=== PATIENT | female | born 1975 | race Caucasian/White ===

== ENCOUNTER 2016-08-10 17:33 | Emergency (ER) | payer SELFPAY ==
[~2016-08-10] VITALS: Ht 170.2 cm; Wt 78.0 kg
[~2016-08-10 17:33] MED LIST: DICL75 PO; HYDR-3533 PO; ROBA750T3 PO
[2016-08-10 17:35] VITALS: BP 139/67; PULSE 70; RESP 24; TEMP 98.7; O2SAT 99
--- NOTE | 2016-08-10 17:51 | PD ---
HPI . left ankle pain earlier today Chief Complaint: Injury Time Seen by Provider: 17:51 Travel History International Travel<30 days: No Contact w/Intl Traveler<30days: No Traveled to known affect area: No History of Present Illness HPI 41-year-old female here with complaints of left ankle pain. Patient was walking and actually rolled her ankle around 4:30 AM this morning. She unfortunately had to go to work and finish his shift because she did not have coverage and has been standing on her foot for a very long time. She tells me that she took a Lortab from a friend at 11 AM. She is now complaining of pain on the lateral ankle. She has decreased range of motion and difficulty ambulating. She rates the pain as severe. She denies any other complaints. PFSH Past Medical History Diminished Hearing: No Menopausal: Yes : 4 Para: 3 Miscarriage: 1 Tubal Ligation: Yes Past Surgical History Hysterectomy: Yes (partial) Joint Replacement: Yes (rt knee x3) Social History Alcohol Use: No Tobacco Use: Yes (1/2 PPD) Substance Use: No Allergies-Medications (Allergen,Severity, Reaction): Coded Allergies: Codeine (Verified Allergy, Mild, 08/10/16) Reported Meds & Prescriptions Reported Meds & Active Scripts Active No Active Prescriptions or Reported Medications Review of Systems General / Constitutional: No: Fever Eyes: No: Visual changes HENT: No: Headaches Cardiovascular: No: Chest Pain or Discomfort Respiratory: No: Shortness of Breath Gastrointestinal: No: Abdominal Pain Genitourinary: No: Dysuria Musculoskeletal: Positive: Pain (left ankle pain) Skin: No Rash Neurologic: No: Weakness Psychiatric: No: Depression Endocrine: No: Polydipsia Hematologic/Lymphatic: No: Easy Bruising Physical Exam Narrative GENERAL: AAO x 3, no acute distress, Well-nourished, well-developed patient. SKIN: Warm and dry. No visible rashes or bruising. Ecchymosis and edema to the left lateral ankle. HEAD: Normocephalic and atraumatic. EYES: No scleral icterus. No injection or drainage. ENT: No nasal drainage noted. . Airway patent. NECK: Supple, trachea midline. No JVD. CARDIOVASCULAR: Regular rate and rhythm without murmurs, gallops, or rubs. RESPIRATORY: Breath sounds equal bilaterally. No accessory muscle use. No rhonchi or rales. GASTROINTESTINAL: Visual inspection normal EXTREMITIES: No cyanosis. Edema to the left lateral ankle. Significant point tenderness with light palpation to the lateral malleolus of the left ankle. Decreased range of motion secondary pain. Dorsi and plantarflexion are normal NEURO: strength in the left foot/ankle normal BACK: Nontender without obvious deformity. PSYCH: AAO x 3, normal affect. Data Data Last Documented VS Vital Signs Date Time Temp Pulse Resp B/P Pulse Ox O2 Delivery O2 Flow Rate FiO2 08/10/16 17:35 98.7 70 24 139/67 99 Room Air Orders Ankle, Complete ([id number]) (08/10/16 17:54) Ketorolac Inj (Toradol Inj) (08/10/16 18:00) Ct Ankle W/O Contrast (08/10/16 ) [facility] Medical Decision Making Medical Screen Exam Complete: Yes Emergency Medical Condition: Yes Medical Record Reviewed: Yes Differential Diagnosis Left ankle sprain, left ankle fracture, less likely Achilles tendon rupture Narrative Course This is a 41-year-old female status post twisting of her left ankle. There is some significant edema and point tenderness to the lateral malleolus of the left ankle. X-ray ordered to rule out any type of bony abnormality. Toradol provided for pain. 1834: discussed xray with patient; her pain is pretty significant with examination and this fragment on xray could represent an avulsion fracture. I have ordered a CT scan Patient's care was transitioned to the next provider coming on: Jerson Cervantes, she will determine the disposition. Additional Instructions: Please return to emergency department if your symptoms return or worsen. Follow up with your primary care provider. Take medications as prescribed. Rest the affected area as much as possible. Ice this area for 15-20 minutes at a time. You can do this every hour or as much as tolerated. Keep this area compressed (jaren bandage) as tolerated. Elevate this area. Use ibuprofen as needed for pain and inflammation. Scripts No Active Prescriptions or Reported Meds Condition: Gaby Lund August 10, 2016 17:51
[2016-08-10] MEDS ORDERED: KETOROLAC TROMETHAMINE 60 MG/2 ML (IM) VIAL IM ONE (18:00)
--- NOTE | 2016-08-10 18:30 | RADRPT ---
EXAM DATE/TIME: 08/10/2016 18:05 [facility] COMPARISON: No previous studies available for comparison. INDICATIONS : Left lateral ankle pain and swelling after rolling ankle. MEDICAL HISTORY : None. SURGICAL HISTORY : None. ENCOUNTER: Initial ACUITY: 1 day PAIN SCORE: 9/10 LOCATION: Left lateral ankle. FINDINGS: There is mild soft-tissue swelling seen laterally. The distal tibia and fibula appear intact. The a nkle is normally aligned. There is some minimal fragmentation seen adjacent to the lateral aspect of the talus. It is uncertain if this represents some minimal acute or chronic change. The ankle is n ormally aligned. CONCLUSION: Mild soft-tissue swelling laterally. There is a small bony density seen adjacent to the inferolatera l aspect of the talus. These could be the sequela of a prior injury or represent avulsion fractures from a more acute injury. Joshua Brady MD on August 10, 2016 at 18:24 Board Certified Radiologist. This report was verified electronically.
--- NOTE | 2016-08-10 19:36 | RADRPT ---
EXAM DATE/TIME: 08/10/2016 19:08 [facility] COMPARISON: ANKLE LEFT COMPLETE ([id number]), August 10, 2016, 18:05. INDICATIONS : Rolled left ankle; pain on lateral side; abnormal x-ray. RADIATION DOSE: 7.29 CTDIvol (mGy) MEDICAL HISTORY : None SURGICAL HISTORY : Hysterectomy. ENCOUNTER: Initial ACUITY: 1 day PAIN SCALE: 6/10 LOCATION: Left lateral ankle TECHNIQUE: Volumetric scanning of the ankle was performed. Using automated exposure control and adjustment of the mA and/or kV according to patient size, radiation dose was kept as low as reasonabl y achievable to obtain optimal diagnostic quality images. FINDINGS: As seen on the plain film examination, there are small bony densities seen adjacent to the inferolate ral aspect of the talus. The fragment measures 1 cm in AP dimension. It is approximately 2 mm in he ight and 1 mm in transverse dimension. It does appear to be associated with soft-tissue swelling oseguera sing the possibility of an avulsion fracture. No other possible fractures are seen. The ankle is no rmally aligned. There is soft-tissue swelling seen adjacent to the distal fibula at the lateral mall eolus. CONCLUSION: Soft-tissue swelling seen laterally with a minimal bony density seen adjacent to the inferolateral ta leobardo. Given the surrounding edema, one needs to suspect this may represent a small avulsion fracture from a ligamentous injury. Joshua Brady MD on August 10, 2016 at 19:28 Board Certified Radiologist. This report was verified electronically.
[2016-08-10] MEDS ORDERED: IBUP800T23 PO (19:46)
--- NOTE | 2016-08-10 19:47 | PD ---
Physical Exam Time Seen by Provider: 19:43 Narrative Patient signed out to me with CT imaging pending. Please refer to previous providers documentation for details surrounding patient's current visit. Data Data Last Documented VS Vital Signs Date Time Temp Pulse Resp B/P Pulse Ox O2 Delivery O2 Flow Rate FiO2 08/10/16 17:35 98.7 70 24 139/67 99 Room Air Orders Ankle, Complete ([id number]) (08/10/16 17:54) Ketorolac Inj (Toradol Inj) (08/10/16 18:00) Ct Ankle W/O Contrast (08/10/16 ) Splint Or Brace Apply/Monitor (08/10/16 19:41) Fiberglass Short Leg Splint Ad (08/10/16 ) Fiberglass Sugartong Sp Ad Sl (08/10/16 ) MDM Medical Record Reviewed: Yes Supervised Visit with LIZZETH: No Narrative Course Last Impressions Ankle X-Ray 08/10/16 1754 Signed Impressions: Service Date/Time: Wednesday, August 10, 2016 18:05 - CONCLUSION: Mild soft- tissue swelling laterally. There is a small bony density seen adjacent to the inferolateral aspect of the talus. These could be the sequela of a prior injury or represent avulsion fractures from a more acute injury. Joshua Brady MD Lower Extremity CT 08/10/16 0000 Signed Impressions: Service Date/Time: Wednesday, August 10, 2016 19:08 - CONCLUSION: Soft-tissue swelling seen laterally with a minimal bony density seen adjacent to the inferolateral talus. Given the surrounding edema, one needs to suspect this may represent a small avulsion fracture from a ligamentous injury. Joshua Brady MD Results discussed with the patient. She is placed in a Martinez splint and provided crutches. She agrees to follow-up with video production specialist. She agrees to return immediately with any acute worsening of symptoms. Diagnosis Primary Impression: Avulsion fracture of left ankle Qualified Code: S82.892A - Avulsion fracture of left ankle, closed, initial encounter Referrals: Orthopedist Primary Care Physician Patient Instructions: Avulsion Fracture (ED), General Instructions Additional Instruction: Please return to emergency department if your symptoms return or worsen. Follow up with your primary care provider. Take medications as prescribed. Rest the affected area as much as possible. Ice this area for 15-20 minutes at a time. You can do this every hour or as much as tolerated. Do not remove your splint Do not get it wet Elevate this area. Use ibuprofen as needed for pain and inflammation. Med/Other Pt SpecificInfo: Prescription(s) given Scripts Hydrocodone-Acetaminophen (Lortab)5-325 Mg Tab1 Tab PO Q6H PRN (PAIN GREATER THAN 6) #15 TAB Ref 0 Prov:Chong Romero MD 08/10/16 Ibuprofen 800 Mg [id number] Mg PO Q8H PRN (Pain/Inflammation) #30 TAB Ref 0 Prov:Patti Cervantes 08/10/16 Disposition: 01 DISCHARGE HOME Condition: Stable Patti Cervantes August 10, 2016 19:47
[2016-08-10] MEDS ORDERED: HYDR-3533 PO (19:48)
== END 2016-08-10 20:29 | disposition home or self-care (01) ==
LOC: NEPD 17:33
DX: S92.152A Displaced avulsion fracture (chip fracture) of left talus, initial encounter for closed fracture (principal); F17.210 Nicotine dependence, cigarettes, uncomplicated; X50.1XXA Overexertion from prolonged static or awkward postures, initial encounter; Y93.01 Activity, walking, marching and hiking; Y92.9 Unspecified place or not applicable; Y99.8 Other external cause status
CPT/HCPCS: 29515; 73610; 73700; 96372; 99284; E0113; J1885